=== PATIENT | male | born 1990 | race Caucasian/White ===

== ENCOUNTER 2022-01-09 14:34 | Emergency (ER) | payer SELFPAY ==
[~2022-01-09] VITALS: Ht 180.3 cm; Wt 62.7 kg
[2022-01-09 14:56] VITALS: BP 150/84; TEMP 98.2
[2022-01-09] MEDS ORDERED: AMOXICILLIN 50500 MG PO ×2 (15:09→18:17)
[2022-01-09 15:33] VITALS: PULSE 73
== END 2022-01-09 15:33 | disposition home or self-care (01) ==
LOC: COL.ER 14:34
DX: K02.9 Dental caries, unspecified (principal); F17.200 Nicotine dependence, unspecified, uncomplicated

== ENCOUNTER 2024-07-13 15:10 | Emergency (ER) | payer SELFPAY ==
[~2024-07-13] VITALS: Ht 180.3 cm; Wt 59.1 kg
[~2024-07-13 15:10] MED LIST changes: -INVEGA1.5 MG PO; -INVEGA3 MG PO; -LEXAPRO 10MG10 MG PO
[2024-07-13] MEDS ORDERED: LEXAPRO 10MG10 MG PO (15:32)
[2024-07-13] MEDS ORDERED: INVEGA3 MG PO (15:33)
[2024-07-13] MEDS ORDERED: INVEGA1.5 MG PO (15:33)
[2024-07-13 16:43] LABS: COLLECTION METHOD CLEAN CATCH
[2024-07-13] MEDS ORDERED: OLANZapine 10 MG Orally-Disinteg TAB PO ONE (16:45)
[2024-07-13 16:53] LABS: PH 7.5 (5.0-8.5); URINE APPEARANCE CLEAR (CLEAR/HAZY); URINE BLOOD NEGATIVE (NEGATIVE); URINE COLOR YELLOW (YELLOW); URINE GLUCOSE NEGATIVE (NEGATIVE); URINE KETONE NEGATIVE (NEGATIVE); URINE NITRATE NEGATIVE (NEGATIVE); URINE PROTEIN(semi-quant) NEGATIVE (NEGATIVE); URINE UROBILINOGEN 0.2 E.U/dL (0.2-1.0)
[2024-07-13 17:09] LABS: TRICYCLIC ANTIDEPRESS URINE NEGATIVE (NEGATIVE)
[2024-07-13 17:42] LABS: BASO % 0.5 % (0.0-2.0); EOS # 0.1 K/mm3 (0.0-0.7); EOS % 1.9 % (0.0-4.0); GRAN % 67.8 % (42.2-75.2); HEMATOCRIT 41.1 % (42.0-52.0); HEMOGLOBIN 14.3 g/dl (13.5-18.0); LYMPH # 1.7 K/mm3 (1.2-3.4); LYMPH % 23.2 % (20.0-51.0); MEAN CELL VOLUME 93 fl (80.0-100.0); MEAN CORPUSCULAR HEMOGLOBIN 32 pg (27-31); MEAN CORPUSCULAR HGB CONC 35 g/dl (33.0-37.0); MEAN PLATELET VOLUME 11.3 fl (7.4-10.4); MONO # 0.5 K/mm3 (0.1-0.6); MONO % 6.2 % (1.7-9.3); PLATELET COUNT 184 K/mm3 (130-400); RED BLOOD COUNT 4.44 M/mm3 (4.20-5.60); REDCELL DISTRIBUTION WIDTH-CV 11.7 % (11.5-14.5)
[2024-07-13 18:00] LABS: ALANINE AMINOTRANSFERASE 17 U/L (0-55); ALKALINE PHOSPHATASE 63 U/L (40-150); ANION GAP 8 mmol/L (7-16); AST,SGOT 18 U/L (5-34); BILIRUBIN,TOTAL 0.5 mg/dL (0.2-1.2); BLOOD UREA NITROGEN 13 mg/dL (9-21); CALCIUM 9.5 mg/dL (8.4-10.2); CHLORIDE 103 mEq/L (98-107); GLUCOSE 94 mg/dL (70-99); SODIUM 140 mEq/L (136-145); TOTAL PROTEIN 6.8 g/dl (6.2-8.1)
[2024-07-13 18:01] LABS: ALCOHOL(ethanol),MEDICAL < 10 mg/dL (0-10); SALICYLATE < 5.0 mg/dL (15.0-30.0)
[2024-07-13 19:03] VITALS: TEMP 97.9
[2024-07-13] MEDS ORDERED: Acetaminophen 500 MG TAB PO ONE (19:15)
[2024-07-13] MEDS ORDERED: Patient's Own Medication Item PO SCH (21:00)
[2024-07-14 06:44] VITALS: BP 110/65; PULSE 59
[2024-07-14] MEDS ORDERED: Escitalopram 10 MG TAB PO SCH (09:00)
[2024-07-14] MEDS ORDERED: Patient's Own Medication Item PO SCH (09:00)
== END 2024-07-14 06:57 ==
LOC: COL.ER 15:10
PROVIDERS: Physician Assistant
DX: R45.851 Suicidal ideations (principal)

== ENCOUNTER → 2024-07-13 | Outpatient (CLI) | payer SELFPAY ==
[~2024-07-13] MED LIST: AMOXICILLIN 50500 MG PO; CEPHALEXIN500 M1 PO; INVEGA1.5 MG PO; INVEGA3 MG PO; LEXAPRO 10MG10 MG PO
== END ==
LOC: COL.CARD 12:00
DX: F31.81 Bipolar II disorder (principal)